=== PATIENT | female | born 1980 | race Caucasian/White ===

== ENCOUNTER 2018-04-13 10:12 | Emergency (ER) | payer BC ==
[2018-04-13 11:03] LABS: Protime INR 1.08
[2018-04-13] MEDS ORDERED: NA CHLORIDE 0.9% 1,000 ML ONE (11:03)
[2018-04-13] MEDS ORDERED: METOPROLOL TARTRATE 5 MG/5 ML INJ IV ONE (11:03)
[2018-04-13 11:04] LABS: Absolute Monocytes 0.5 K/uL (0.1-1.3); Absolute Neutrophil 3.2 K/uL (1.8-8.0); Basophils % 0.8 % (0-1.3); Eosinophils % 2.5 % (0-4.4); MPV 9.9 fL (7.6-11.3); Monocytes % 9.8 % (3.3-12.3); RBC Red Blood Cell Count 4.97 M/uL (3.86-4.86)
--- NOTE | 2018-04-13 11:04 | RAD REPORT ---
EXAM DESCRIPTION: [place] Single View04/13/2018 10:51 am CLINICAL HISTORY: Chest pain COMPARISON: none FINDINGS: The lungs appear clear of acute infiltrate. The heart is normal size IMPRESSION: No acute abnormalities displayed
[2018-04-13 11:27] LABS: ALT/SGPT 17 U/L (12-78); AST/SGOT 13 U/L (15-37); Albumin 3.7 g/dL (3.4-5.0); Alkaline Phosphatase 45 U/L (45-117); BUN Blood Urea Nitrogen 12 mg/dL (7-18); Bicarbonate 21 mmol/L (21-32); Bilirubin Direct < 0.1 mg/dL (0-0.2); Bilirubin Total 0.2 mg/dL (0.2-1.0); Glucose Level 88 mg/dL (74-106); Magnesium 2.6 mg/dL (1.8-2.4); NT PRO-BNP 151 pg/mL (<125); Potassium 3.8 mmol/L (3.5-5.1); Protein, Total 7.3 g/dL (6.4-8.2); Sodium Level 137 mmol/L (136-145); Troponin (Emerg Dept Use Only) < 0.02 ng/mL (0.0-0.045)
--- NOTE | 2018-04-13 12:27 | ER ---
Nurse's Notes [facility] Name: Ale Johnson Age: 37 yrs Sex: Female : 1980 Arrival Date: 04/13/2018 Time: 10:14 Bed 19 Private MD: Juan Pan; Christopher Burrell D Diagnosis: Palpitations Presentation: 04/13 10:16 Presenting complaint: Patient states: "I'm having heart palpitations, I was diagnosed aj1 with SVT 20 years ago, I haven't really had any trouble with it since I cut off caffeine. I had a cold and someone gave me some medicine, and I'm thinking that might have caused this" Reports she has been having palpitations for the past 2 days. Denies CP, SOB. Transition of care: patient was not received from another setting of care. Onset of symptoms was April 11, 2018. Risk Assessment: Do you want to hurt yourself or someone else? Patient reports no desire to harm self or others. Initial Sepsis Screen: Does the patient meet any 2 criteria? HR > 90 bpm. No. Patient's initial sepsis screen is negative. Does the patient have a suspected source of infection? No. Patient's initial sepsis screen is negative. Care prior to arrival: None. 10:16 Method Of Arrival: Ambulatory aj1 10:16 Acuity: JAMIL 3 aj1 Triage Assessment: 10:18 General: Appears in no apparent distress. comfortable, Behavior is calm, cooperative, aj1 appropriate for age. Pain: Denies pain. Neuro: Level of Consciousness is awake, alert, obeys commands. Cardiovascular: Reports palpitations, Denies chest pain, shortness of breath, Patient's skin is warm and dry. Respiratory: Airway is patent Respiratory effort is even, unlabored, Respiratory pattern is regular, symmetrical. 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 - Social history:: Smoking status: Patient/guardian denies using tobacco. - Ebola Screening: : Patient denies travel to an Ebola-affected area in the 21 days before illness onset. Screenin:56 Abuse screen: Denies threats or abuse. Nutritional screening: No deficits noted. em Tuberculosis screening: No symptoms or risk factors identified. Fall Risk None identified. Assessment: 10:45 General: Appears in no apparent distress. comfortable, Behavior is calm, cooperative. em Pain: Denies pain. Neuro: Level of Consciousness is awake, alert, obeys commands, Oriented to person, place, time, situation, Appropriate for age Denies dizziness. Cardiovascular: Reports palpitations, Denies chest pain, nausea, shortness of breath, Patient's skin is warm and dry. Rhythm is irregular. Respiratory: Airway is patent Respiratory effort is even, unlabored, Respiratory pattern is regular, symmetrical, Breath sounds are clear bilaterally. GI: Abdomen is flat, Patient currently denies nausea, vomiting. : Urine is clear. EENT: No signs and/or symptoms were reported regarding the EENT system. Derm: Skin is intact, is healthy with good turgor, Skin is pink, warm \\T\\ dry. Musculoskeletal: Range of motion: intact in all extremities. 10:50 Reassessment: I agree with previous assessment. hb 11:05 Reassessment: Patient appears in no apparent distress at this time. Patient and/or em family updated on plan of care and expected duration. Pain level reassessed. Patient is alert, oriented x 3, equal unlabored respirations, skin warm/dry/pink. Patient states symptoms have improved. 12:00 Reassessment: Patient appears in no apparent distress at this time. Patient and/or em family updated on plan of care and expected duration. Pain level reassessed. Patient is alert, oriented x 3, equal unlabored respirations, skin warm/dry/pink. pt currently in sinus rhythm Patient denies pain at this time. Patient states symptoms have improved. 12:49 Reassessment: Patient appears in no apparent distress at this time. Patient and/or em family updated on plan of care and expected duration. Pain level reassessed. Patient is alert, oriented x 3, equal unlabored respirations, skin warm/dry/pink. Patient denies pain at this time. Patient states feeling better. Patient states symptoms have improved. Vital Signs: 10:18 BP 119 / 92; Pulse 93; Resp 18; Temp 97.9; Pulse Ox 100% on R/A; Weight 58.97 kg (R); aj1 Height 5 ft. 4 in. (162.56 cm) (R); Pain 0/10; 11:05 BP 111 / 86; Pulse 72; Resp 19; Pulse Ox 100% on R/A; Pain 0/10; em 12:00 BP 113 / 76; Pulse 72; Resp 18; Pulse Ox 99% on R/A; Pain 0/10; em 12:50 BP 122 / 87; Pulse 74; Resp 16; Pulse Ox 99% on R/A; Pain 0/10; em 10:18 Body Mass Index 22.31 (58.97 kg, 162.56 cm) aj1 Vitals: 10:45 Cardiac Rhythm Assessment Irregular. em 11:05 Cardiac Rhythm Assessment Sinus rhythm. em 12:00 Cardiac Rhythm Assessment Sinus rhythm. em 12:50 Cardiac Rhythm Assessment Sinus rhythm. em ED Course: 10:14 Patient arrived in ED. sb2 10:15 Juan Pan DO is Private Physician. sb2 10:15 Christopher Burrell MD is Private Physician. sb2 10:18 Triage completed. aj1 10:18 Arm band placed on Patient placed in an exam room. aj1 10:20 Carlton Ochoa PA is PHCP. jmm 10:20 Ifeanyi Shen MD is Attending Physician. jmm 10:43 Frederick Diop LVN is Primary Nurse. em 10:45 X-ray completed. Portable x-ray completed in exam room. Patient tolerated procedure mh1 well. 10:45 Patient has correct armband on for positive identification. Placed in gown. Bed in low em position. Call light in reach. Side rails up X2. Adult w/ patient. monitoring coordinator on. Pulse ox on. NIBP on. 10:51 XRAY Chest (1 view) In Process Unspecified. EDMS 10:53 EKG done, by instructional technologist. reviewed by Carlton JIMENEZ times three. at1 10:55 Initial lab(s) drawn, by me, sent to lab. Inserted saline lock: 20 gauge in right em antecubital area, using aseptic technique. Blood collected. 12:03 EKG done, by instructional technologist. reviewed by Carlton JIMENEZ Repeat EKG. at1 12:25 Michael Irwin MD is Referral Physician. jmm 12:25 Ruben Marley MD is Referral Physician. [facility] 12:25 Terrance Thomas MD is Referral Physician. m 12:49 No provider procedures requiring assistance completed. IV discontinued, intact, em bleeding controlled, No redness/swelling at site. Pressure dressing applied. Administered Medications: 10:56 Drug: Lopressor 5 mg {Note: HR 118, BP 119/72.} Route: IVP; Site: right antecubital; hb 11:05 Follow up: Response: No adverse reaction; Cardiac rhythm changed em Outcome: 12:25 Discharge ordered by MD. m 12:49 Discharged to home ambulatory, with family. em 12:49 Condition: good 12:49 Discharge instructions given to patient, Instructed on discharge instructions, follow up and referral plans. Demonstrated understanding of instructions, follow-up care. 12:51 Patient left the ED. em Signatures: Dispatcher [employer] Landy Vasquez, RN RN aj1 Carlton Ochoa PA PA [facility] Anali Bowens mh1 Frederick Diop, OPERATIONS PROCESSOR OPERATIONS PROCESSOR em Sofie Rodriguez, damper maker EKG Tat1 Joan De La Fuente, JOSE LUIS RN Nancy Solis sb2
--- NOTE | 2018-04-13 12:27 | EDPHYS ---
Physician Documentation [facility] Name: Ale Johnson Age: 37 yrs Sex: Female : 1980 Arrival Date: 04/13/2018 Time: 10:14 Bed 19 Private MD: Juan Pan; Christopher Burrell D ED Physician Ifeanyi Shen HPI: 04/13 10:32 This 37 yrs old Female presents to ER via Ambulatory with complaints of [facility] Palpitations. 10:32 The patient presents with a history of heart racing. Context: The symptoms occur at [facility] rest, with light activity. Onset: The symptoms/episode began/occurred gradually, 2 day(s) ago. Duration: The patient or guardian reports multiple episodes. Modifying factors: The symptoms are aggravated by light activity. This is a 37 year old female that presents to the ED with complaints of palpitations beginning this past Tuesday worsening last night. Patient has been evaluated for similar symptoms in the past by Dr. Irwin whom prescribed an unknown medication. Patient denies chest pain or shortness of breath. . 11:46 Patient states she discontined taking serrapeptase this past Tuesday. . 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 - Social history:: Smoking status: Patient/guardian denies using tobacco. - Ebola Screening: : Patient denies travel to an Ebola-affected area in the 21 days before illness onset. ROS: 10:32 Constitutional: Negative for fever, chills, and weight loss. jmm 10:32 Respiratory: Negative for shortness of breath, cough, wheezing, and pleuritic chest pain, Abdomen/GI: Negative for abdominal pain, nausea, vomiting, diarrhea, and constipation, Neuro: Negative for headache, weakness, numbness, tingling, and seizure. 10:32 Cardiovascular: Positive for palpitations. 10:32 All other systems are negative. Exam: 10:32 Constitutional: This is a well developed, well nourished patient who is awake, alert, jmm and in no acute distress. Head/Face: atraumatic. Eyes: EOMI, no conjunctival erythema appreciated ENT: Moist Mucus Membranes Neck: Trachea midline, Supple Chest/axilla: Normal chest wall appearance and motion. Cardiovascular: Regular rate and rhythm. No edema appreciated 10:32 Respiratory: the patient does not display signs of respiratory distress, Respirations: normal, Breath sounds: are clear throughout. 10:32 Abdomen/GI: Inspection: abdomen appears normal, Bowel sounds: normal, Palpation: abdomen is soft and non-tender, in all quadrants. 10:32 Back: ROM is normal. 10:32 Musculoskeletal/extremity: ROM: intact in all extremities. 10:32 Skin: Appearance: Color: normal in color. 10:32 Neuro: Orientation: is normal, Mentation: is normal, Memory: is normal. 10:32 Psych: Behavior/mood is pleasant, cooperative. Vital Signs: 10:18 BP 119 / 92; Pulse 93; Resp 18; Temp 97.9; Pulse Ox 100% on R/A; Weight 58.97 kg (R); aj1 Height 5 ft. 4 in. (162.56 cm) (R); Pain 0/10; 11:05 BP 111 / 86; Pulse 72; Resp 19; Pulse Ox 100% on R/A; Pain 0/10; em 12:00 BP 113 / 76; Pulse 72; Resp 18; Pulse Ox 99% on R/A; Pain 0/10; em 12:50 BP 122 / 87; Pulse 74; Resp 16; Pulse Ox 99% on R/A; Pain 0/10; em 10:18 Body Mass Index 22.31 (58.97 kg, 162.56 cm) [facility] MDM: 10:31 Patient medically screened. [facility] 12:22 Data reviewed: vital signs, nurses notes, lab test result(s), EKG, radiologic studies, [facility] plain films. Data interpreted: Pulse oximetry: on. ED course: Symptoms relieved in the ED. Repeat EKG shows normal sinus. Patient and family encouraged to follow up with cardiology. Given strict return precautions. understood and agrees with the plan of care. . 12:24 Counseling: I had a detailed discussion with the patient and/or guardian regarding: the [facility] historical points, exam findings, and any diagnostic results supporting the discharge/admit diagnosis, lab results, radiology results, the need for outpatient follow up, to return to the emergency department if symptoms worsen or persist or if there are any questions or concerns that arise at home. Response to treatment: the patient's symptoms have resolved after treatment. Response to treatment: and as a result, I will discharge patient. 04/13 10:22 Order name: Basic Metabolic Panel [facility] 04/13 10:22 Order name: CBC with Diff; Complete Time: 11:50 [facility] 04/13 10:22 Order name: LFT's; Complete Time: 11:50 [facility] 04/13 10:22 Order name: Magnesium; Complete Time: 11:50 [facility] 04/13 10:22 Order name: NT PRO-BNP; Complete Time: 11:50 [facility] 04/13 10:22 Order name: PT-INR; Complete Time: 11:50 [facility] 04/13 10:22 Order name: Troponin (emerg Dept Use Only); Complete Time: 11:50 [facility] 04/13 10:22 Order name: XRAY Chest (1 view); Complete Time: 11:09 [facility] 04/13 10:22 Order name: EKG; Complete Time: 10:23 [facility] 04/13 10:22 Order name: TSH; Complete Time: 11:50 [facility] 04/13 10:23 Order name: Basic Metabolic Panel; Complete Time: 11:50 [facility] 04/13 11:33 Order name: T4 Free; Complete Time: 11:50 [facility] 04/13 12:17 Order name: EKG Electrocardiogram [facility] 04/13 10:22 Order name: Cardiac monitoring; Complete Time: 10:56 [facility] 04/13 10:22 Order name: EKG - Nurse/Tech; Complete Time: 10:56 [facility] 04/13 10:22 Order name: IV Saline Lock; Complete Time: 11: [facility] 04/13 10:22 Order name: Labs collected and sent; Complete Time: 11: [facility] 04/13 10:22 Order name: O2 Per Protocol; Complete Time: 11: [facility] 04/13 10:22 Order name: O2 Sat Monitoring; Complete Time: 11: [facility] 04/13 12:17 Order name: EKG Electrocardiogram [facility] 04/13 12:17 Order name: EKG Electrocardiogram EDMS Administered Medications: 10:56 Drug: Lopressor 5 mg {Note: HR 118, BP 119/72.} Route: IVP; Site: right antecubital; hb 11:05 Follow up: Response: No adverse reaction; Cardiac rhythm changed em Disposition: 04/13/18 12:25 Discharged to Home. Impression: Palpitations. - Condition is Stable. - Discharge Instructions: Palpitations, Paroxysmal Supraventricular Tachycardia. - Medication Reconciliation Form, Thank You Letter, Antibiotic Education, Prescription Opioid Use form. - Follow up: Micahel Irwin MD; When: 1 - 2 days; Reason: Recheck today's complaints, Continuance of care, Re-evaluation by your physician. Follow up: Ruben Marley MD; When: 1 - 2 days; Reason: Recheck today's complaints, Continuance of care, Re-evaluation by your physician. Follow up: Terrance Thomas MD; When: 1 - 2 days; Reason: Recheck today's complaints, Continuance of care, Re-evaluation by your physician. Addendum: 04/24/2018 07:24 Co-signature as Attending Physician, Ifeanyi Shen MD I agree with the assessment and k dr plan of care. Signatures: Dispatcher [employer] EDLandy Mckeon RN RN aj1 Ifeanyi Shen MD MD [facility] Carlton Ochoa PA PA ebonym Frederick Diop, CHAIN MAKER HAND CHAIN MAKER HAND em Joan De La Fuente RN RN Corrections: (The following items were deleted from the chart) 04/13 12:51 12:25 04/13/2018 12:25 Discharged to Home. Impression: Palpitations. Condition is em Stable. Forms are Medication Reconciliation Form, Thank You Letter, Antibiotic Education, Prescription Opioid Use. Follow up: Michael Irwin; When: 1 - 2 days; Reason: Recheck today's complaints, Continuance of care, Re-evaluation by your physician. Follow up: Ruben Marley; When: 1 - 2 days; Reason: Recheck today's complaints, Continuance of care, Re-evaluation by your physician. Follow up: Terrance Thomas; When: 1 - 2 days; Reason: Recheck today's complaints, Continuance of care, Re-evaluation by your physician. gifty
--- NOTE | 2018-04-14 07:02 | EKG ---
Test Date: 2018-04-13 Test Time: 10:36:22 Leather Shaver: GE MEASUREMENT RESULTS: Intervals: Rate: 138 DE: 176 QRSD: 66 QT: 282 QTc: 427 [place]: P: 69 DE: 176 QRS: 85 T: 62 INTERPRETIVE STATEMENTS: Sinus tachycardia with blocked premature atrial complexes Nonspecific ST abnormality Abnormal ECG Compared to ECG 04/13/2018 10:35:58 Atrial premature complex(es) now present ST (T wave) deviation still present Electronically Signed On 04-14-18 06:53:07 MANAGER MATH by Terrance Thomas
--- NOTE | 2018-04-14 07:02 | EKG ---
Test Date: 2018-04-13 Test Time: 10:35:58 Tourist Adviser: GE MEASUREMENT RESULTS: Intervals: Rate: 132 AK: 122 QRSD: 66 QT: 304 QTc: 450 [place]: P: 68 AK: 122 QRS: 83 T: 63 INTERPRETIVE STATEMENTS: Sinus tachycardia Nonspecific ST abnormality Abnormal ECG Compared to ECG 04/13/2018 10:35:33 ST (T wave) deviation now present Atrial premature complex(es) no longer present Electronically Signed On 04-14-18 06:53:18 INSPECTION ENGINEER by Terrance Thomas
--- NOTE | 2018-04-14 07:02 | EKG ---
Test Date: 2018-04-13 Test Time: 11:41:44 Casing Blower: GE MEASUREMENT RESULTS: Intervals: Rate: 75 HI: 132 QRSD: 74 QT: 390 QTc: 435 [place]: P: 59 HI: 132 QRS: 80 T: 59 INTERPRETIVE STATEMENTS: Normal sinus rhythm Normal ECG Compared to ECG 04/13/2018 10:36:22 Sinus tachycardia no longer present Atrial premature complex(es) no longer present ST (T wave) deviation no longer present Electronically Signed On 04-14-18 06:52:56 AUTOMATION TEST ENGINEER by Terrance Thomas
--- NOTE | 2018-04-14 07:02 | EKG ---
Test Date: 2018-04-13 Test Time: 10:35:33 Head Turning Machine Operator: GE MEASUREMENT RESULTS: Intervals: Rate: 102 MN: 118 QRSD: 70 QT: 350 QTc: 456 [place]: P: 64 MN: 118 QRS: 84 T: 64 INTERPRETIVE STATEMENTS: Sinus tachycardia with premature atrial complexes in a pattern of bigeminy Otherwise normal ECG Compared to ECG 09/02/2016 13:19:12 Atrial premature complex(es) now present Sinus rhythm no longer present Electronically Signed On 04-14-18 06:53:20 COMMISSION ASSOCIATE by Terrance Thomas
== END 2018-04-13 12:51 | disposition home or self-care (01) ==
LOC: ER 10:12
DX: R00.2 Palpitations (principal); Z88.3 Allergy status to other anti-infective agents
CPT/HCPCS: 36415; 71045; 80048; 80076; 83735; 83880; 84439; 84443; 84484; 85025; 85610; 93005; 96374; 99285; J7030